=== PATIENT | male | born 1930 | race Caucasian/White ===

== ENCOUNTER → 2020-05-21 | Outpatient (CLI) | payer OTHER ==
[~2020-05-21] MED LIST: ASA81BEC PO; CALCIUM CITRAT250 MG PO; CYMBALTA30 MG PO; FISH OIL 1,0001 EAC9 PO; LUTEIN20 M1 PO; NIACIN 500 MG500 M1 PO; SIMVASTATIN40 MG PO; VITAMIN C500 M2 PO; VITAMIN D350 MCG PO
== END ==
LOC: LAB 14:27
PROVIDERS: ATTEND Specialist
DX: Z01.812 Encounter for preprocedural laboratory examination (principal); Z20.828 Contact with and (suspected) exposure to other viral communicable diseases

== ENCOUNTER → 2020-05-26 | Outpatient (CLI) | payer OTHER ==
[~2020-05-26] VITALS: Ht 175.3 cm; Wt 73.9 kg
--- NOTE | 2020-05-27 13:27 | P ---
[facility] [place] [address] PROCEDURE REPORT Name: SABIHA BUNN Room #: REG [facility] Gregory#: [id number] Admission: 05/26/20 Attend Phys: Cj Vazquez Discharge: Date of : 07/04/[birth year] Report #: [id number] THIS REPORT FOR: cc: Baltazar Russell MD, Ted J. MD McElhinney, Christian C. MD ~ CC: Cj Russell DATE OF SERVICE: 05/26/2020 PROCEDURE PERFORMED: Upper endoscopy with biopsies. HISTORY OF PRESENT ILLNESS: The patient is an 89-year-old male with a history of Hemoccult positive stool. He was seen by myself in the office on 04/27/2020. The patient denies any obvious bright red blood per rectum or melena. He does take aspirin on a daily basis. Last colonoscopy was approximately 8 years ago with possible polyp at that time. No family history of colon cancer. Plan is for EGD and colonoscopy. DESCRIPTION OF PROCEDURE: The risks and benefits of the procedure were explained to the patient, those risks including but not limited to bleeding, perforation and the risk of sedation. He understood these risks and gave informed consent. Sedation was given using propofol per anesthesia. Next, using a standard Olympus upper endoscope, the scope was placed in the patient's mouth and advanced under direct vision through the esophagus, stomach and into the second portion of the duodenum. The larynx was normal in appearance. The upper and mid esophagus was normal. In the distal esophagus, grade A erosive esophagitis was noted. Upon entering the stomach, a small hiatal hernia was noted. There were a few small gastric polyps, 3-4 mm in size. Biopsies were obtained. Overall, the gastric mucosa otherwise was normal. Biopsies were obtained to rule out H. pylori. The pylorus was normal and patent. In the duodenal bulb, a moderate duodenitis with several small clean white based ulcers were noted. No evidence of bleeding. The first and second portions of the duodenum were normal. The scope was then withdrawn and the procedure terminated. The patient tolerated the procedure well. IMPRESSION: 1. Grade A erosive esophagitis. 2. Small gastric polyps. 3. Small hiatal hernia. 4. Duodenum with small duodenal ulcers. RECOMMENDATIONS: 1. Await biopsy results. [address] [address] PROCEDURE REPORT Name: HUYENSABIHA TREADWELL Room #: REG KENY Jenkins#: [id number] Admission: 05/26/20 Attend Phys: Cj Vazquez Discharge: Date of : 07/04/[birth year] Report #: [id number] 2. Recommend daily PPI therapy. 3. We will proceed with colonoscopy next today. Thank you for allowing me to participate in his care. <ELECTRONICALLY SIGNED> By: Cj Gaitan MD 05/27/20 1327 1105 0151 Cj Gaitan MD /monse
--- NOTE | 2020-05-27 13:28 | P ---
[facility] [place] [address] PROCEDURE REPORT Name: SABIHA BUNN Room #: REG [facility] Gregory#: [id number] Admission: 05/26/20 Attend Phys: Cj Vazquez Discharge: Date of : 07/04/[birth year] Report #: [id number] THIS REPORT FOR: cc: Baltazar Russell MD, Ted J. MD McElhinney, Christian C. MD ~ CC: Cj Russell DATE OF SERVICE: 05/26/2020 PROCEDURE PERFORMED: Colonoscopy with bleeding control. HISTORY OF PRESENT ILLNESS: The patient is an 89-year-old male with a recent likely Hemoccult-positive stool. Denies any obvious bright red blood per rectum or melena. No family history of colon cancer, reportedly had a history of polyps 8 years ago. Upper endoscopy was just performed showing grade A erosive esophagitis as well as duodenitis and small duodenal ulcers. No active bleeding. Plan is for colonoscopy. DESCRIPTION OF PROCEDURE: The risks and benefits of the procedure were explained to the patient, those risks including but not limited to bleeding, perforation and the risk of sedation. He understood these risks and gave informed consent. Propofol was given per anesthesia. Next, a digital rectal exam was initially performed, which was normal. Next, using a standard Olympus colonoscope, the scope was placed in the patient's anus and advanced under direct vision to the cecum. The overall prep was good. The cecum and ileocecal valve were normal in appearance. In the proximal ascending colon, a 5 mm nonbleeding AVM was noted. This was cauterized. Because of his history of heme-positive stools, this was cauterized with 7-[place] bipolar cautery. No bleeding was noted after cauterization. Scattered diverticula were noted throughout the ascending, transverse and descending colon. Multiple diverticula were noted throughout the sigmoid colon, no evidence of inflammation or bleeding. The rectal mucosa was normal. On retroflexion, small nonbleeding internal hemorrhoids were noted. The scope was then withdrawn and the procedure terminated. The patient tolerated the procedure well. IMPRESSION: 1. Arteriovenous malformation status post cautery, possible source of Hemoccult positive stools. 2. Pandiverticulosis. 3. Small internal hemorrhoids, nonbleeding. RECOMMENDATIONS: 1. Observe the patient post-procedure. [address] [address] PROCEDURE REPORT Name: SABIHA BUNN Ortega Room #: REG KENY Jenkins#: [id number] Admission: 05/26/20 Attend Phys: Cj Vazquez Discharge: Date of : 07/04/[birth year] Report #: [id number] 2. Plan is to start the patient on daily PPI therapy and observe. Thank you for allowing me to participate in his care. <ELECTRONICALLY SIGNED> By: Cj Gaitan MD 05/27/20 1328 1110 0201 Cj Gaitan MD /monse
--- NOTE | 2020-05-31 17:06 | PATH ---
[facility] [address] [place] [address] PATHOLOGY RPT PROCEDURE Name: SABIHA MONDRAGON Room #: REG SULLYBrock Silva.#: [id number] Admission: 05/26/20 Date of : [birth year] Discharge: Report #: [id number] Path Case #: [id number] [facility] Accession Number: [id number] . 01 Material submitted: . PART A: stomach - GASTRIC BIOPSY R/O H. PYLORI PART B: stomach - GASTRIC POLYP . 01 Clinical history: . BLOOD IN STOOL, DIVERTICULOSIS, HEMORRHOIDS . 02 Diagnosis: A. Gastric mucosa, gastric, rule out H. pylori, endoscopic biopsy: - Mild chronic gastritis. - Negative for intestinal metaplasia or atrophy. - Helicobacter pylori immunohistochemical stain pending, to be reported as an addendum. . B. Polyp, gastric polyp, endoscopic biopsy: - Hyperplastic polyp. - Negative for dysplasia. (IUV:pit 05/28/2020) QTP 05/28/2020 1335 Local . 02 Addendum: . This addendum is issued subsequent to reviewing a properly-controlled H. pylori immunohistochemical stain performed on block A1. It shows no definitive Helicobacter pylori organisms present. The originally-rendered interpretation remains unchanged. . (IUV:mml; 05/31/2020) . . Professional services performed by [facility] at [facility], [address] [place], [place] [address], [place] [address]. Technical services performed by [facility] at [address] [place] [address], [address] [address]. . [facility]/05/31/2020 Addendum Electronically Signed by Lamar Fajardo MD, Pathologist . 02 Electronically signed: . Lamar Fajardo MD, Pathologist NPI- [id number] . 01 Gross description: . A. Received in formalin labeled "Sabiha Mondragon gastric BX rule out H. pylori" are multiple velazco-brown soft tissue fragments measuring in [facility] [address] [place] [address] PATHOLOGY RPT PROCEDURE Name: SABIHA MONDRAGON Room #: REG [facility].#: [id number] Admission: 05/26/20 Date of : [birth year]/04/[birth year] Discharge: Report #: [id number] Path Case #: [id number] aggregate 0.8 x 0.5 x 0.1 cm. The specimen is submitted entirely in A1. . B. Received in formalin labeled "Thorup, Sabiha, gastric polyp" are two velazco-brown soft tissue fragments measuring in aggregate 0.6 x 0.3 x 0.2 cm. The specimen is submitted entirely in B1. ([facility]; 05/27/2020) [facility] 05/27/2020 1513 Local . 02 Pathologist provided ICD-10: K29.50, K31.7 . 02 CPT . 904915, 605343, B11140 Specimen Comment: A courtesy copy of this report has been sent to [phone], [phone] Specimen Comment: [id number] Specimen Comment: Report sent to / DR PACHECO Specimen Comment: A duplicate report has been generated due to demographic updates. Performed at: [address], [place] [id number] MD Hi Hogue MD Phone: [phone] Performed at: [address] [id number] MD Lamar Fajardo MD Phone: [phone]
== END | disposition home or self-care (01) ==
LOC: GI
PROVIDERS: ATTEND Specialist
DX: R19.5 Other fecal abnormalities (principal); K55.20 Angiodysplasia of colon without hemorrhage; K57.30 Diverticulosis of large intestine without perforation or abscess without bleeding; K64.8 Other hemorrhoids; K22.10 Ulcer of esophagus without bleeding; K31.7 Polyp of stomach and duodenum; K44.9 Diaphragmatic hernia without obstruction or gangrene; K29.80 Duodenitis without bleeding; K29.50 Unspecified chronic gastritis without bleeding; I12.9 Hypertensive chronic kidney disease with stage 1 through stage 4 chronic kidney disease, or unspecified chronic kidney disease; N18.4 Chronic kidney disease, stage 4 (severe); E78.5 Hyperlipidemia, unspecified; Z98.890 Other specified postprocedural states; Z79.899 Other long term (current) drug therapy; Z85.46 Personal history of malignant neoplasm of prostate; Z85.828 Personal history of other malignant neoplasm of skin; Z85.528 Personal history of other malignant neoplasm of kidney; Z79.82 Long term (current) use of aspirin
CPT/HCPCS: 62110; 62900